=== PATIENT | female | born 1965 | race Two or more races ===

== ENCOUNTER → 2020-06-09 | Outpatient (CLI) | payer OTHER | END | disposition home or self-care (01) | LOC: PPH VACUNA 09:00 | DX: Z23 Encounter for immunization (principal) ==

== ENCOUNTER 2021-03-15 08:00 | Outpatient (CLI) | payer OTHER | END 2021-03-15 08:30 | disposition home or self-care (01) | LOC: PPH VACUNA 08:00 | DX: Z23 Encounter for immunization (principal) ==

== ENCOUNTER 2021-08-09 09:00 | Outpatient (CLI) | payer OTHER | END 2021-08-09 09:30 | disposition home or self-care (01) | LOC: PPH VACUNA 09:00 | PROVIDERS: ATTEND Emergency Medicine Pediatric Emergency Medicine | DX: Z23 Encounter for immunization (principal) ==

== ENCOUNTER 2021-11-14 08:00 | Outpatient (CLI) | payer OTHER | END 2021-11-14 08:30 | disposition home or self-care (01) | LOC: PPH VACUNA 08:00 | PROVIDERS: ATTEND Emergency Medicine Pediatric Emergency Medicine | DX: Z23 Encounter for immunization (principal) ==

== ENCOUNTER 2022-06-06 15:30 | Outpatient (CLI) | payer OTHER | END 2022-06-06 15:35 | disposition home or self-care (01) | LOC: PPH VACUNA 15:30 | PROVIDERS: ATTEND Emergency Medicine Pediatric Emergency Medicine | DX: Z23 Encounter for immunization (principal) ==

== ENCOUNTER 2023-05-31 07:55 | Outpatient (CLI) | payer OTHER | END 2023-05-31 08:05 | disposition home or self-care (01) | LOC: PPH VACUNA 07:55 | PROVIDERS: ATTEND Emergency Medicine Pediatric Emergency Medicine | DX: Z23 Encounter for immunization (principal) | CPT/HCPCS: 90686; G0008 ==